=== PATIENT | female | born 1985 | race Caucasian/White ===

== ENCOUNTER 2020-02-17 08:38 | Outpatient (CLI) | payer SELFPAY ==
--- NOTE | 2020-02-17 08:51 | XR_ITS ---
WS: [id number] Exam: XR chest 2V* [id number] Date/Time of Exam: 02/17/2020 8:58 AM Reason For Exam: ABNORMAL WEIGHT LOSS Comparison 05/18/2013. Findings: The lungs are clear and fully expanded. Costophrenic angles are sharp. No infiltrates. Bronchovascula r relief appears normal. Cardiac silhouette is unremarkable. Bony elements are intact. XR/XR chest 2V* [id number] IMPRESSION: Unremarkable chest radiograph.
--- NOTE | 2020-02-17 08:51 | XR_ITS ---
WS: [id number] Exam: XR hand RT min 3V* [id number] Date/Time of Exam: 02/17/2020 8:58 AM Reason For Exam: R FINGER PAIN/HX R FINGER INJURY 6 YRS AGO/SWOLLEN No acute fracture or dislocation. No soft tissue foreign bodies are seen. XR/XR hand RT min 3V* [id number] IMPRESSION: 1. Negative right hand.
== END 2020-02-17 08:39 | disposition home or self-care (01) ==
LOC: RAD 08:43
PROVIDERS: PCP Nurse Practitioner Family; Visit Provider Nurse Practitioner Family
DX: R63.4 Abnormal weight loss (principal); M79.644 Pain in right finger(s)
CPT/HCPCS: 71046; 73130

== ENCOUNTER 2020-09-08 15:21 | Outpatient (CLI) | payer SELFPAY ==
--- NOTE | 2020-09-08 | US_ITS ---
WS: [id number] OB ultrasound, 09/08/2020 Clinical Data: SUPERVISION, NORMAL Comparison: None. Findings: There is a single interuterine . heart rate is 176 beats per minute. There is a 0.38 cm yolk sac present. The crown-rump length measured 1.5 cm. The estimated gestational age 7w6d is with an CORRY of approximately 04/21/2021. Cervical length is 2.5 5 cm and it was closed. The left ovary measured 2.4 cm x 1.9 cm x 1.5 cm. No ovarian cyst or mass was seen. The uterus measured 4.89 x 6.20 x 9.62 cm. US/US OB <=14 wk fetus w transvag Impression: 1. Single interuterine . 2. Estimated gestational age of 7w6d with an CORRY of 04/21/2021. 3. heart rate 176 beats per minute.
== END 2020-09-08 15:22 | disposition home or self-care (01) ==
LOC: RAD 15:25
PROVIDERS: PCP Nurse Practitioner Family; Visit Provider Family Medicine
DX: Z34.81 Encounter for supervision of other normal pregnancy, first trimester; Z3A.01 Less than 8 weeks gestation of pregnancy
CPT/HCPCS: 76801; 76817

== ENCOUNTER 2020-12-12 14:00 | Outpatient (CLI) | payer BC, SELFPAY ==
--- NOTE | 2020-12-12 14:11 | US_ITS ---
WS: [id number] OBSTETRICAL ULTRASOUND COMPLETE HISTORY: SUPERVISION OF NORMAL COMPARISON: 09/08/2020 Single intrauterine gestation in breech presentation. Cervix is Closed and normal length. Cervical length is 3.2 cm. Normal amount of amniotic fluid surrounds the fetus. Placenta: Posterior, no previa or abruption. Placenta grade 1 Heart: 157 BPM. Poorly visualized heart. Anatomy: Intracranial structures and spine are normal. kidneys, stomach and urinary bladd er are unremarkable. Abdominal wall, three-vessel cord and cord insertion site are normal. 4 extremities are present. profile: Limited. Gender: Female. measurements: BPD = 4.6 cm = 19w5d HC = 18.4 cm = 20w6d AC = 14.6 cm = 19w6d FL = 3.6 cm = 21w4d EFW: 368 g. Biometry is internally concordant. AGA by ultrasound: 20w4d CORRY by ultrasound: 04/27/2021 Possible amnion band or synechia noted in the posterior gestational sac. US/US OB >= 14 weeks fetus [id number] IMPRESSION: 1. Single intrauterine gestation of 20w4d with an CORRY of 04/27/2021. 2. Quality of this examination is limited by maternal body habitus. Poor visua lization of the profile and heart. There is also possible amniotic band o r synechia is noted within the posterior gestational sac. The remaining anatomy is negative.
== END 2020-12-12 14:01 | disposition home or self-care (01) ==
LOC: US 14:06
PROVIDERS: PCP Family Medicine; Visit Provider Family Medicine
DX: Z3A.20 20 weeks gestation of pregnancy; Z34.82 Encounter for supervision of other normal pregnancy, second trimester
CPT/HCPCS: 76805

== ENCOUNTER 2021-01-11 08:59 | Outpatient (CLI) | payer BC, SELFPAY ==
--- NOTE | 2021-01-11 09:07 | US_ITS ---
WS: [id number] ULTRASOUND OB FOCUSED HISTORY: SUPERVISION OF NORMAL COMPARISON: 12/12/2020 Single intrauterine gestation in cephalic presentation. Cervix is closed at 4.8 cm. Normal amount of amniotic fluid. heart rate at 141 BPM. The configuration of the heart is abnormal. There is a large gap along t he intra-atrial septum. The orientation of the ventricles is also abnormal. These changes may be rela [place] to difficulty imaging of the heart. profile limited due to position of the fetus. No amniotic band identified with certainty. US/[place] [id number] IMPRESSION: 1. Continued limited evaluation of the heart and profile. Recommend mate rnal- medicine evaluation of the heart. 2. Normal amniotic fluid.
== END 2021-01-11 09:00 | disposition home or self-care (01) ==
LOC: RAD 09:03
PROVIDERS: PCP Family Medicine; Visit Provider Family Medicine
DX: Z34.80 Encounter for supervision of other normal pregnancy, unspecified trimester (principal)
CPT/HCPCS: 76816

== ENCOUNTER 2021-03-27 11:39 | Outpatient (CLI) | payer BC, SELFPAY ==
--- NOTE | 2021-03-27 11:48 | US_ITS ---
WS: [id number] ULTRASOUND OB LIMITED TECHNIQUE: Limited ultrasound examination of the fetus. CLINICAL INFORMATION: SUPERVISION OF ELDERLY MULTIGRAVIDA COMPARISON: None. FINDINGS: Cervix measures 4.3 cm Single interuterine gestation. presentation is cephalic Placental location is posterior fundal Placenta grade: 1. heart rate 153 BPM. DAKSHA 8.6 cm Anatomy: BDP: 8.8 cm = 35w5d HC: 32.9 cm = 37w2d AC: 29.9 cm = 33w6d FEMUR LENGTH: 7.2 cm = 37w0d Estimated weight: 5 lbs. 13 oz. EGA by ultrasound: 36w0d CORRY by ultrasound: 04/24/2021 US/US OB limited [id number] IMPRESSION: 1. Closed cervix measuring 4.3 CM. 2. presentation is vertex with posterior fundal placenta. 3. DAKSHA 8.6 cm just above the 5th percentile for gestational age
== END 2021-03-27 11:40 | disposition home or self-care (01) ==
PROVIDERS: PCP Family Medicine; Visit Provider Family Medicine
DX: O09.523 Supervision of elderly multigravida, third trimester (principal)
CPT/HCPCS: 76815

== ENCOUNTER 2021-03-27 12:30 | Outpatient (CLI) | payer BC, SELFPAY ==
[2021-03-27 12:40] VITALS: BP 122/71; PULSE 83
[2021-03-27 12:55] VITALS: BP 126/72; PULSE 82
[2021-03-27 12:56] VITALS: BMI 36.3
[2021-03-27 13:04] VITALS: RESP 16
== END 2021-03-27 13:05 | disposition home or self-care (01) ==
LOC: OPOB 12:38 → OBGYN 12:38
PROVIDERS: PCP Family Medicine; Visit Provider Family Medicine
DX: O09.529 Supervision of elderly multigravida, unspecified trimester (principal); Z3A.00 Weeks of gestation of pregnancy not specified
CPT/HCPCS: 59025

== ENCOUNTER 2021-04-03 10:10 | Outpatient (CLI) | payer BC, SELFPAY ==
--- NOTE | 2021-04-03 10:42 | US_ITS ---
WS: [id number] BIOPHYSICAL PROFILE AMNIOTIC FLUID HISTORY: SUPERVISION OF ELDERLY MULTIGRAVIDA COMPARISON: 03/27/2021 Cardiac activity: 160 bpm. Cervix: closed. Position: Vertex. Placenta: Posterior and fundal. No previa or abruption. Placenta grade: 2 Parameters are as follows: Breathin Movement: 2 Tone: 2 Fluid volume: 2 Amniotic fluid index: 6.5 cm. Visually the amount of amniotic fluid appears greater than 6.5 cm. Ther e is a vertical pocket measuring at least 3.9 cm. US/US OB F/U w BPP wo NST IMPRESSION: 1. Biophysical profile score: 8/8. 2. Amniotic fluid index calculated at 6.5 cm which is below the 5th percentile. Visually the amount of amniotic fluid appears greater within this. Notified Chris Singh MD at 04/03/2021 11:30 AM.
== END 2021-04-03 10:11 | disposition home or self-care (01) ==
PROVIDERS: PCP Family Medicine; Visit Provider Family Medicine
DX: O09.529 Supervision of elderly multigravida, unspecified trimester (principal)
CPT/HCPCS: 76816; 76819

== ENCOUNTER 2021-04-03 11:40 | Outpatient (CLI) | payer BC, SELFPAY ==
[2021-04-03 11:59] VITALS: BP 132/67; PULSE 71
[2021-04-03 12:15] VITALS: BP 123/73; PULSE 68
[2021-04-03 12:30] VITALS: BP 121/73; PULSE 74
[2021-04-03 12:36] VITALS: BMI 37.3
[2021-04-03 12:44] VITALS: BP 123/76; PULSE 75; TEMP 36.8
[2021-04-03 12:45] VITALS: BP 123/76; PULSE 75; TEMP 36.8
== END 2021-04-03 12:45 | disposition home or self-care (01) ==
LOC: OPOB 11:49 → OBGYN 11:50
PROVIDERS: PCP Family Medicine; Visit Provider Family Medicine
DX: O26.899 Other specified pregnancy related conditions, unspecified trimester (principal); Z3A.00 Weeks of gestation of pregnancy not specified
CPT/HCPCS: 59025

== ENCOUNTER 2021-04-06 10:40 | Outpatient (CLI) | payer BC, SELFPAY ==
[2021-04-06 10:40] VITALS: BMI 37.3
[2021-04-06 10:53] VITALS: BP 124/78; PULSE 81
[2021-04-06 10:55] VITALS: TEMP 36.2
--- NOTE | 2021-04-06 11:09 | US_ITS ---
WS: [id number] ULTRASOUND OB FOCUSED HISTORY: LOW DAKSHA PREVIOUSLY COMPARISON: None available. 04/03/2021, 03/27/2021 heart rate at 138 BPM. Fetus in vertex presentation. Cervix is closed measuring 4.4 cm. Amniotic fluid index: 5.9 cm which is just slightly lower than the prior DAKSHA of 0.5 cm. Largest verti hoa pocket of amniotic fluid 3.6 cm. Visually the amniotic fluid appears low. US/ [place] limited [id number] IMPRESSION: 1. Oligohydramnios. No improvement in the amniotic fluid since 04/03/2021. 2. Normal cardiac activity. Notified patient's nurse on OB at 04/06/2021 11:40 AM.
[2021-04-06 12:09] VITALS: TEMP 36.2
== END 2021-04-06 11:45 | disposition home or self-care (01) ==
LOC: OPOB 10:48 → OBGYN 10:49
PROVIDERS: PCP Family Medicine; Visit Provider Family Medicine
DX: O09.529 Supervision of elderly multigravida, unspecified trimester (principal); Z3A.00 Weeks of gestation of pregnancy not specified; O41.00X0 Oligohydramnios, unspecified trimester, not applicable or unspecified
CPT/HCPCS: 59025; 76815; 99211

== ENCOUNTER 2021-04-10 10:38 | Outpatient (CLI) | payer BC, SELFPAY ==
[2021-04-10 11:00] VITALS: BP 120/69; PULSE 71
--- NOTE | 2021-04-10 11:06 | US_ITS ---
WS: [email or web address] ULTRASOUND OB LIMITED TECHNIQUE: Limited ultrasound examination of the fetus. CLINICAL INFORMATION: decreased fluid COMPARISON: April 06, 2021 FINDINGS: Cervix is long and closed measuring 4.0 cm Single interuterine gestation. heart rate 144 BPM. DAKSHA 8.9 cm increased from previous, greater than the 5th percentile and less than the median for gest ational age. DAKSHA 5.9 cm previously. Biophysical profile 8 out of 8. breathin movement: 2 tone: 2 Amniotic fluid: 2 IMPRESSION 1. Normal biophysical profile 8 out of 8 2. Cervix is long and closed measuring 4.0 CM. 3. DAKSHA is increased from previous although with persistent visually decreased amniotic fluid
[2021-04-10 11:12] VITALS: BMI 37.7
[2021-04-10 11:42] VITALS: RESP 17
== END 2021-04-10 12:13 | disposition home or self-care (01) ==
LOC: OPOB 10:48 → OBGYN 10:50
PROVIDERS: PCP Family Medicine; Visit Provider Family Medicine
DX: O26.899 Other specified pregnancy related conditions, unspecified trimester (principal); Z3A.00 Weeks of gestation of pregnancy not specified; N89.8 Other specified noninflammatory disorders of vagina
CPT/HCPCS: 76815

== ENCOUNTER 2021-04-13 10:28 | Outpatient (CLI) | payer BC, SELFPAY ==
[2021-04-13] VITALS (8 sets, daily range): BP systolic 104–123; BP diastolic 62–79; PULSE 77–95; RESP 16; TEMP 36.6; BMI 38.2
--- NOTE | 2021-04-13 10:38 | US_ITS ---
WS: [id number] ULTRASOUND OB LIMITED TECHNIQUE: Limited ultrasound examination of the fetus. CLINICAL INFORMATION: advanced maternal age COMPARISON: April 10, 2021 FINDINGS: Normal cervix measuring 4.1 cm. Single interuterine gestation. heart rate 171 BPM. Normal DAKSHA 8.5 cm compared to 8.9 cm previous Biophysical profile 8 out of 8. breathin movement: 2 tone: 2 Amniotic fluid: 2 Gestational age 38 weeks 5 days. Estimated delivery April 22, 2021 US/US OB BPP wo NST [id number] IMPRESSION: 1. Normal biophysical profile 8 out of 8 2. Cervix is long and closed. 3. Persistent visually decreased amniotic fluid volume similar to April 10, 2021. 4. DAKSHA 8.5 cm, between the 5th percentile and median, for gestational age.
[2021-04-13 15:41] LABS: Adenovirus Not Detected (NOT DETECT); Chlamydia Pneumoniae Not Detected (NOT DETECT); Coronavirus 229E,HKU1,NL63,OC4 Not Detected (NOT DETECT); Human Metapneumovirus Not Detected (NOT DETECT); Human Rhinovirus/Enterovirus Not Detected (NOT DETECT); Influenza A Not Detected (NOT DETECT); Influenza A H1 Not Detected (NOT DETECT); Influenza A H1-2009 Not Detected (NOT DETECT); Influenza A H3 Not Detected (NOT DETECT); Influenza B Not Detected (NOT DETECT); Mycoplasma Pneumoniae Not Detected (NOT DETECT); Parainfluenza Virus Type 1 Not Detected (NOT DETECT); Parainfluenza Virus Type 2 Not Detected (NOT DETECT); Parainfluenza Virus Type 3 Not Detected (NOT DETECT); Parainfluenza Virus Type 4 Not Detected (NOT DETECT); Respiratory Syncytial Virus A Not Detected (NOT DETECT); Respiratory Syncytial Virus B Not Detected (NOT DETECT); SARS-COV-2 Not Detected (NOT DETECT)
== END 2021-04-13 12:15 | disposition home or self-care (01) ==
LOC: OPOB 10:36 → OBGYN 10:36
PROVIDERS: PCP Family Medicine; Visit Provider Family Medicine
DX: O09.529 Supervision of elderly multigravida, unspecified trimester (principal); Z3A.00 Weeks of gestation of pregnancy not specified
CPT/HCPCS: 59025; 76819; 87635

== ENCOUNTER 2021-04-17 03:45 | Inpatient (IN) | payer BC, SELFPAY ==
[2021-04-17] VITALS (59 sets, daily range): BP systolic 108–204; BP diastolic 54–85; PULSE 65–102; RESP 16–18; TEMP 36.7–37.5; O2SAT 90–100; BMI 38.0
[2021-04-17] MEDS: ampicillin 2,000 MG in sodium chloride 0.9% (plus) 50 ML 100 MG IV (04:24)
[2021-04-17] MEDS: lactated ringers 1,000 ML 999 ML IV (04:24)
[2021-04-17] MEDS: fentaNYL 50 mcg/mL INJ 2mL 25 MCG IVP (04:30)
[2021-04-17 04:43] LABS: Basophils % 0.2 %; Eosinophils # 0.1 10^3/uL (0.0-0.8); Eosinophils % 0.4 %; Hematocrit 35.2 % (37.0-47.0); Hemoglobin 11.7 g/dL (11.5-15.3); Lymphocytes # 2.2 10^3/uL (0.8-4.8); Lymphocytes % 16.5 %; Mean Corpuscular HGB Conc 33.2 g/dL (30.0-36.0); Mean Corpuscular Hemoglobin 28.8 pg (28.0-34.0); Mean Corpuscular Volume 86.7 fl (81-99); Mean Platelet Volume 11.6 fL (7.4-10.4); Monocytes # 1.2 10^3/uL (0.2-0.9); Neutrophils # 9.89 10^3/uL (1.8-7.7); Neutrophils % 73.2 %; Nucleated Red Blood Cells % 0 %; Platelet Count 243 10^3/cmm (130-400); Red Blood Count 4.06 10^6/uL (4.1-5.3); Red Cell Distribution Width 13.2 % (12.1-15.1); White Blood Count 13.5 10^3/uL (4.0-10.0)
--- NOTE | 2021-04-17 05:43 | P.ANESASSM_ITS ---
Pre-Anesthetic Assessment Pre-Anesthetic Assessment: Height/Weight: Height 1.6 m Weight 97.522 kg Pulse Resp BP Pulse Ox 86 18 129/59 100 04/17/21 05:40 04/17/21 04:30 04/17/21 05:36 04/17/21 05:40 Preop Diagnosis: Active Labor Proposed Procedure: Labor Epidural Familial anesthetic complications: none Was Beta Melvin taken within 24 hours: N/A Was Clonidine taken within 24 hours: N/A Last intake: clear liquids 04/16/21 1830 solid Social: Social History: No alcohol and No tobacco Exam: Pre-Anes Outpt Exam: alert, oriented x 3 and clear to auscultation bilaterally Airway: Submandibular: WNL Cervical ROM: WNL MP: 2 Dentition: Full History/ROS: No significant history except as noted Pulmonary: Pulmonary: None reported CV/HEM: CV/HEM: None reported : : None reported Hepatic: Hepatic: None reported GI: GI: None reported Metabolic: Metabolic: None reported Musc/skel: Musc/skel: None reported Neuropsych: Neuropsych: None reported Anesthetic Plan: ASA status: 2 Anesthesia: Regional (specify below) Risk of > 500 ml blood loss (7ml/kg in children): No Medications/Allergies Current Medications: Current Medications Generic Name Dose Route Start Last Admin Trade Name Freq PRN Reason Stop Dose Admin Fentanyl 25 mcg 04/17/21 04:01 04/17/21 04:30 Fentanyl 50 Mcg/ Ml Inj 2ml IVP 25 mcg Q1H PRN Administration SEVERE PAIN Lactated Ringer's 1,000 mls @ 999 m ls/hr 04/17/21 04:05 04/17/21 04:24 Lactated Ringers IV 999 mls/hr .Q1H1M PRN Administration See label comment s PFSH Anesthesia PFSH: Social History (Updated 05/05/20 @ 16:22 by Tara Cotto LPN) Smoking and tobacco status: never smoked Female Reproductive History: : 3 Data Anesthesia CBC & Chem 7: 04/17/21 04:24 Other Labs: Laboratory Results - last 48 hr 04/17/21 04:24 WBC 13.5 H RBC 4.06 L Hgb 11.7 Hct 35.2 L MCV 86.7 MCH 28.8 MCHC 33.2 RDW 13.2 Plt Count 243 MPV 11.6 H Neut % (Auto) 73.2 Lymph % (Auto) 16.5 [place] % (Auto) 9.0 Eos % (Auto) 0.4 Baso % (Auto) 0.2 Neut # (Auto) 9.89 H Lymph # (Auto) 2.2 [place] # (Auto) 1.2 H Eos # (Auto) 0.1 Baso # (Auto) 0.0 Nucleated RBC % (auto) 0 Nucleated RBCs # 0.0 Cardiac Studies: No Data to Display
--- NOTE | 2021-04-17 05:51 | P.ANES_ITS ---
Anesthesia Procedures Procedure/Date: 04/17/21 Epidural: Time Out Performed: Yes Consents Signed: Procedure Consent Consent: from patient, risks and benefits reviewed and patient agrees to proceed Lumbar Level: L4-L5 Epidural position: sitting Epidural procedure: sterile prep of area, 1% lidocaine to numb the area, negative for paresthesia pa ssed, 1.5% xylocaine 1:200k epi, no systemic response, sterile dressing applied, L.U.D. no apparent complications and 0.2% Ropiavacaine @ mls/hr (13ml/hr) Other Information: JEANA at 8 cm catheter threaded to 15 cm with ease 3 ml 2% lidocaine given and PCEA started.
[2021-04-17] MEDS: dextrose 5%-lactated ringers 1,000 ML 125 ML IV (05:57)
[2021-04-17] MEDS: ampicillin 1,000 MG in sodium chloride 0.9% (plus) 50 ML 100 MG IV (08:30)
--- NOTE | 2021-04-17 08:30 | P.HP_ITS ---
Providers/Chief Complaint Admitting Physician: Chris Singh MD Primary Care Provider: Chris Singh MD Chief Complaint: Contractions History of Present Illness Nandini Ballesteros is a 35 year old at 39.2 weeks gestation by LMP consistent with 7-week ultrasound. Her is complicated by first trimester bleeding, history of gestational hypertension, advanced maternal age, GBS positive, borderline low amniotic fluid index. The patient presented to labor and delivery triage for spontaneous labor on 04/17/2021. The patient began having contractions on the morning of 04/16/2021. They gradually increased and by 1 AM on 04/17/2021 they were becoming much stronger. She presented to labor and delivery at approximately 3 AM. She was noted to be 2 to 3 cm upon admission and changed to 1 cm after an hour. For this reason she was kept for spontaneous labor. The patient denies any leaking fluid, vaginal bleeding, chest pains, shortness of breath, dysuria, fever, headache, diarrhea. Medications/Allergies Home Medications Medication Instructions Recorded Confirmed Last Taken Type No Known Home Medications 04/17/21 04/17/21 Unknown History Allergies Allergy/AdvReac Type Severity Reaction Status Date / Time meperidine [From Demerol] Allergy NAUSEA Verified 04/17/21 03:21 tramadol Allergy NAUSEA Verified 04/17/21 03:21 PFSH Acute PFSH: Surgical History (Updated 04/17/21 @ 09:04 by Chris Singh MD) H/O dilation and curettage Social History (Updated 04/17/21 @ 09:04 by Chris Singh MD) Smoking and tobacco status: never smoked Alcohol intake: never Substance/Drug Use: never Female Reproductive History: : 3 Vitals/I&O/Wt Last Vital Signs Pulse 84 04/17/21 08:17 Resp 18 04/17/21 04:30 BP 118/61 04/17/21 08:17 Pulse Ox 100 04/17/21 05:55 04/16/21 04/17/21 04/17/21 22:59 06:59 14:59 Intake Total 1050 / 1050 Output Total 200 / 200 Balance 850 / 850 Weight last 48 hrs Weight 215 lb Physical Exam Narrative: EXAM NARRATIVE: General: Alert and oriented x3 Eyes: Pupils equal round and reactive to light and accommodation Mouth: Mucous membranes moist, pharynx non-erythematous Cardiac: Regular rate and rhythm without murmurs Lungs: Clear to auscultation bilaterally without wheezes, crackles or rhonchi Abdomen: Soft, non-tender, fundus consistent with gestational age Extremities: Trace edema in the bilateral lower extremities Urinary Catheter Management^: Corral Latex: Cath Placed During This Visit: yes Reason for Continuing Indwelling Catheter: Required Immobilization for Trauma or Surgery or Anesthesia Urinary Catheter Date of Insertion: 04/17/21 Urinary Catheter Time of Insertion: 06:06 Data : 04/17/21 04:24 A&P Additional A&P Information The patient is making good change on her own and is currently 8 cm dilated. heart tones are in the mid 140s with moderate variability good accelerations. She has a category 1 tracing. She is having contractions every 2 to 3 minutes. We will plan to continue with routine management. The patient has received 2 doses of ampicillin. All questions were answered. The patient and her are in agreement with current plan of care. Attestations Medical Necessity Statement*: The patient be here for greater than 2 midnights due to routine intrapartum and management of labor and delivery. Coding Level of Care Code Acute Seed Analysis Laboratory Assistant for Cornelius Ferreira
[2021-04-17] MEDS: ondansetron 2 mg/ML SDV 2 mL 4 MG IVP (09:59)
[2021-04-17] MEDS: oxytocin 30 UNIT/500 ML BAG 600 UNIT IV (11:30)
--- NOTE | 2021-04-17 11:57 | P.PCNOB_ITS ---
Delivery Note: Date of delivery: April 17, 2021 Pre-delivery diagnoses: 1. Intrauterine at 39.2 weeks gestation 2. First trimester bleeding 3. Advanced maternal age 4. GBS positive 5. Borderline low amniotic fluid index Post-delivery diagnoses: 1. Intrauterine status post spontaneous vaginal delivery at 39.2 weeks gestation 2. First trimester bleeding 3. Advanced maternal age 4. GBS positive 5. Borderline low amniotic fluid index delivery of healthy female weighing 7 pounds 2 ounces with Apgars of 8 and 9 Procedure: Spontaneous v aginal delivery Op report anesthesia: Epidural Delivering Physician: Chris Singh MD Estimated blood loss (mL): 150 Findings: 1. Healthy female weighing 7 pounds 2 ounces with Apgars of 8 and 9 2. Intact placenta with central umbilical cord insertion site. Pre-Delivery Course: The patient presented to labor and delivery triage for spontaneous labor on 04/17/2021. The patient began having contractions on the morning of 04/16/2021. They gradually increased and by 1 AM on 04/17/2021 they were becoming much stronger. She presented to labor and delivery at approximately 3 AM. She was noted to be 2 to 3 cm upon admission and changed to 1 cm after an hour. For this reason she was kept for spontaneous labor. The patient received a dose of fentanyl IV for pain management. The patient received a laboring epidural. The patient made gradual change on her own and was complete by 9:34 AM on 04/17/2021. Delivery: The patient began pushing at 9:48 AM on 04/18/2021. The infant descended slowly and the infant was born at 11:26 AM on 04/18/2021 in the OA position. The right shoulder was anterior shoulder and it delivered with steady downward pressure. The left shoulder delivered with steady upward pressure. The rest of the infant delivered with some level of difficulty. The infant was crying immediately after delivery. The mouth and nose were bulb suctioned by myself. The infant was placed on the mother's chest where the nurses were waiting to care for her. The cord was clamped by myself after approximately 1 minute and cut by the infant's father. Cord blood was obtained. The cord was then drained of blood and traction was placed on umbilical cord. Uterus was massaged and the placenta delivered without complication and 11:30 AM on 04/18/2021. The placenta was noted to be intact with a central umbilical cord insertion site. The uterus was massaged and the patient's bleeding gradually decreased. The cervix was inspected and no lacerations were noted. The vaginal wall was inspected and there was a second-degree midline vaginal laceration. This did not extend to the rectum. This was repaired using 3-0 Vicryl in a running fashion. The epidural provided adequate anesthesia. Rectal exam was done and no sutures were noted in the rectal vault. Currently both the mother and infant are doing well. Coding Level of Care Code Acute [place] Worker Helper for Cornelius Ferreira
[2021-04-17] MEDS: ibuprofen 800 mg tablet PO ×2 (14:29→21:19)
[2021-04-17] MEDS: benzocaine-menthol 78 gm Canister 1 SPRAY TOPICAL (14:29)
[2021-04-17] MEDS: lanolin oint 7 gm 1 APPLIC TOPICAL (14:29)
--- NOTE | 2021-04-17 14:59 | PC.NURSE ---
pt up to bathroom, void 400mL. erinn care performed by pt. pad and gown changed. pt back to bed, ice pack to perineum.
--- NOTE | 2021-04-17 15:32 | ANE.PACU2 ---
Inpatient post-anesthesia follow up: Airway intact: Yes Vital signs: Temperature 99.5 F Pulse Rate 81 Respiratory Rate 18 Blood Pressure 128/69 Pulse Oximetry 100 Oxygen Delivery Me thod Room Air Oxygen Flow Rate Fraction of Inspir ed Oxygen Hydration adequate: Yes Nausea and vomiting: No Pain level: 2 Mental status: Baseline
[2021-04-17] MEDS: HYDROcodone-acetaminophen 5-325 mg Tablet PO (16:03)
[2021-04-17] MEDS: docusate sodium 100 mg Capsule PO (17:34)
[2021-04-18 00:14] LABS: Hematocrit 29.1 % (37.0-47.0); Hemoglobin 9.6 g/dL (11.5-15.3); Mean Corpuscular Hemoglobin 29.1 pg (28.0-34.0); Mean Corpuscular Volume 88.2 fl (81-99); Mean Platelet Volume 11.5 fL (7.4-10.4); Platelet Count 189 10^3/cmm (130-400); Red Cell Distribution Width 13.2 % (12.1-15.1); White Blood Count 20.9 10^3/uL (4.0-10.0)
[2021-04-18 02:00] VITALS: BP 120/76; PULSE 86
--- NOTE | 2021-04-18 08:35 | PM.DCS ---
Discharge Providers Date of Admission: 04/17/21 03:45 Date of Discharge: April 18, 2021 Attending Provider at Admission: Chris Singh MD Attending Provider at Discharge: Chris Singh MD Primary Care Provider: Chris Singh MD Diagnoses at Discharge Other Information Additional DC diagnoses/information: 1. Intrauterine status post spontaneous vaginal delivery at 39.2 weeks gestation 2. First trimester bleeding 3. Advanced maternal age 4. GBS positive 5. Borderline low amniotic fluid index delivery of healthy infant female weighing 7 pounds 2 ounces with Apgars of 8 and 9 Reason for Visit Reason for Visit: Contractions Hospital Course Hospital Course Pre-Delivery Course: The patient presented to labor and delivery triage for spontaneous labor on 04/17/2021. The patient began having contractions on the morning of 04/16/2021. They gradually increased and by 1 AM on 04/17/2021 they were becoming much stronger. She presented to labor and delivery at approximately 3 AM. She was noted to be 2 to 3 cm upon admission and changed to 1 cm after an hour. For this reason she was kept for spontaneous labor. The patient received a dose of fentanyl IV for pain management. The patient received a laboring epidural. The patient made gradual change on her own and was complete by 9:34 AM on 04/17/2021. Delivery: The patient began pushing at 9:48 AM on 04/18/2021. The descended slowly and the was born at 11:26 AM on 04/18/2021 in the OA position. The right shoulder was anterior shoulder and it delivered with steady downward pressure. The left shoulder delivered with steady upward pressure. The rest of the infant delivered with some level of difficulty. The was crying immediately after delivery. The mouth and nose were bulb suctioned by myself. The infant was placed on the mother's chest where the nurses were waiting to care for her. The cord was clamped by myself after approximately 1 minute and cut by the infant's father. Cord blood was obtained. The cord was then drained of blood and traction was placed on umbilical cord. Uterus was massaged and the placenta delivered without complication and 11:30 AM on 04/18/2021. The placenta was noted to be intact with a central umbilical cord insertion site. The uterus was massaged and the patient's bleeding gradually decreased. The cervix was inspected and no lacerations were noted. The vaginal wall was inspected and there was a second-degree midline vaginal laceration. This did not extend to the rectum. This was repaired using 3-0 Vicryl in a running fashion. The epidural provided adequate anesthesia. course: The patient is doing well . Her bleeding is decreasing well. She is ambulating, voiding, passing gas and tolerating food by mouth. Her pain is well controlled. Routine discharge instructions were discussed. All questions were answered. Continue with routine care. Physical Exam Narrative: EXAM NARRATIVE: General: Alert and oriented x3 Cardiac: Regular rate and rhythm without murmurs Lungs: Clear to auscultation bilaterally without wheezes, crackles or rhonchi Abdomen: Soft, mild tenderness, fundus is firm and 2 cm below the umbilicus. Extremities: Trace edema in the bilateral lower extremities Urinary Catheter Management^: Corral Latex: Cath Placed During This Visit: yes, but has since been removed by the nurse Reason for Continuing Indwelling Catheter: Decision to DC Catheter Urinary Catheter Date of Insertion: 04/17/21 Urinary Catheter Time of Insertion: 06:06 Date Urinary Catheter Removed: 04/17/21 Time Urinary Catheter Discontinued: 09:45 Discharge Data Data Completed and Pending: Labs from last 24 hours 04/18/21 00:05 WBC 20.9 H RBC 3.30 L Hgb 9.6 L Hct 29.1 L MCV 88.2 MCH 29.1 MCHC 33.0 RDW 13.2 Plt Count 189 MPV 11.5 H Vitals: Last Vital Signs Temp 98.1 F 04/17/21 21:30 Pulse 86 04/18/21 02:00 Resp 16 04/17/21 21:30 BP 120/76 04/18/21 02:00 Pulse Ox 97 04/17/21 21:30 Discharge Plan Discharge Patient Disposition: Home Condition: Good Prescriptions: New ibuprofen 800 mg Tablet 800 mg PO TID Qty: 60 RF: 0 ferrous sulfate 325 mg (65 mg iron) Tablet,Delayed Release (Dr/Ec) 325 mg PO BIDWM Qty: 30 RF: 0 -U 106.5-1 mg Capsule 1 cap PO DAILY Qty: 30 RF: 0 Discharge Orders: Discharge Order (Routine); Ordered 04/18/21 Ordered By: Chris Singh Referrals: Chris Singh MD [Primary Care Provider] - 05/23/21 10:00 am (Your appointment is scheduled for May 23 at 10:00am with Dr. Singh ) Discharge Diet: Regular Discharge Activity: Limit activity as instructed Patient Instructions: Depression (DC), Bleeding (DC), Preeclampsia and Eclampsia After Delivery (GEN), Hemorrhage (DC), OB Discharge Report, OB Food/Drug Interaction Guide, Opioid Safety, OB [facility], OB Vaginal Deliveries Activity Restrictions/Additional Instructions: Nothing per vagina for 6 weeks. Showers are preferable over a bath for the first 6 weeks. Discharge Attestations Time Spent in Discharge Care*: greater than 30 min Quality Metrics Clinical Quality Measures During this hospital stay, did patient experience: None Coding Level of Care Code Acute Chg FW DC note
[2021-04-18] MEDS: ibuprofen 800 mg tablet PO ×2 (09:57→14:20)
[2021-04-18] MEDS: prenatal vitamin Capsule 1 CAP PO (09:57)
[2021-04-18] MEDS: docusate sodium 100 mg Capsule PO (09:57)
[2021-04-18] MEDS: ferrous sulfate EC 325 mg Tablet PO (09:59)
[2021-04-18 10:40] VITALS: BP 121/79; PULSE 82; RESP 16; TEMP 36.8; O2SAT 98
[2021-04-18 14:04] LABS: Rubella IgG 27.4 IU/mL (0.0-10.0)
== END 2021-04-18 14:20 | disposition home or self-care (01) | DRG 807 ==
LOC: OPOB 05:20 → OBGYN 05:20
PROVIDERS: Admitting Provider Family Medicine; PCP Family Medicine; Visit Provider Family Medicine
DX: O99.824 Streptococcus B carrier state complicating childbirth (principal); Z37.0 Single live birth; O71.4 Obstetric high vaginal laceration alone; Z3A.39 39 weeks gestation of pregnancy; Z23 Encounter for immunization
CPT/HCPCS: 36415; 51702; 59025; 59409; 85025; 85027; 86762; 90471; 90686; 96374; 99211; J0290; J2405; J2795; J3010